=== PATIENT | female | born 1995 ===

== ENCOUNTER 2025-07-23 07:55 | Outpatient (REF) | payer OTHER, MEDICARE, MEDICAID, SELFPAY ==
--- OUTSIDE RECORDS SUMMARY | 2024-09-20 11:27 | XMS_ITS | Encounter Summary ---
Author Organization [facility] [place] [address] Care Team Providers Care Line Maintenance Supervisor Name Role Phone Tyra Patel MD Primary Care Provider [phone] Encounter Details Date Type Department Care Team (Late st Contact Info) Description 09/20/2024 11:27 AM EDT Hospital Encounter TH HISTORIC ENCOUNTERS EASTERN CONVERSION ONLY Maria G Marcano MD [address] [place] [phone] Social History Tobacco Use Types Packs/Day Years Used Date Smoking Tobacco: Never Passive Smoke Exposure: Never Smokeless Tobacco: Never Alcohol Use Standard Drinks/Week Comments Not Currently 0 (1 standard drink = 0.6 oz pur e alcohol) Socially Housing Instability Answer Date Recorde d Are you worried that in the next 2 months you may not have stable housing? No 02/28/2025 Food Access & Nutrition Answer Date Rec orded Do you have access to a vari ety of food including fruits and vegetables? No 02/28/2025 Access to Healthcare Answer Date Record ed Within the last 3 months, ho w many times did you visit the emergency department for your medical care? 0 02/28/2025 Health Literacy Answer Date Recorded How often do you need to hav e someone help you when you read instructions, pamphlets, or other written material from your doctor or pharmacy? Never 02/28/2025 Caregiver: How often do you need to have someone help you when you read instructions, pamphlets, or other written material from your doctor or pharmacy? Not on file 02/28/2025 Financial Risk Answer Date Recorded How hard is it for you to pa y for the very basics like food, housing, medical care, and air conditioning / heating? Not very hard 02/28/2025 Transportation Answer Date Recorded Has the lack of transportati on kept you from meetings, work, or from getting things needed for daily living? Not on file 02/28/2025 Has the lack of transportati on kept you from medical appointments or from getting medications? No 02/28/2025 Social Isolation Answer Date Recorded How often do you feel lonely or isolated from th ose around you? Never 02/28/2025 Food Risk Answer Date Recorded Within the past 12 months we worried whether our food would run out before we got money to buy more. Never true 02/28/2025 Within the past 12 months th e food we bought just didn't last and we didn't have money to get more. Never true 02/28/2025 Dependent Care Answer Date Recorded Do you need help finding or paying for care for your loved ones. For example, childrens club attendant or elderly care for an older adult? No 02/28/2025 Education Answer Date Recorded Do you think completing more education or training, like finishing a GED, going to college, or learning a trade, would be helpful for you? No 02/28/2025 Employment and Income Answer Date Recor ded During the last four weeks, have you been actively looking for work? No 02/28/2025 Living Situation Answer Date Recorded What is your living situation? 0 02/28/2025 Comments No Sex and Gender Information Value Date Recorded Sex Assigned at Female 02/17/2025 9:53 AM EDT Legal Sex Female 9:01 AM EST Gender Identity Female 02/17/2025 9:53 AM EDT Sexual Orientation Straight 02/17/2025 9: 53 AM EDT documented as of this encounter Last Filed Vital Signs Vital Sign Reading Time Taken Comments Blood Pressure 107/75 09/20/2024 11:37 AM EDT Sitting Left arm Pulse 91 09/20/2024 11:37 AM EDT Temperature - - Respiratory Rate - - Oxygen Saturation - - Inhaled Oxygen Concentration - - Weight 74.4 kg (164 lb) 07/26/2024 11:2 3 AM EDT Height 157.5 cm (5' 2 ) 07/26/2024 11:2 3 AM EDT Body Mass Index 30 07/26/2024 11:23 AM EDT documented in this encounter Progress Notes * Maria G Marcano MD - 09/20/2024 11:30 AM EDT . Epilepsy / Neurology clinic Visit Note Chief Complaint and Reason for Consult New visit Referred by:PCP Reason for referral:seizure vs pseudoseizure History of Present Illness Interval history Patient is here for follow up No new neurological symptom concerning for seizure since last visit Patient still on Topamax 100 mg twice a day and Trileptal 300 mg twice a day for her mood discussedwith the patient that to be continued until we finish the workup Since last visit she was diagnosed with upper respiratory tract infection complicated by ear pain concerning for otitis media currently on antibiotics Patient have not heard or scheduled for her EEG yet Reviewed records from [facility] she had a CT scan done but no MRI brain which was nonconcerning so patient please obtain MRI HPI Kelly Brizuela is a 29 y.o. adult here in Epilepsy clinic for evaluation and management of seizures. Past medical history of with past medical history of IBS , Colitis , CPTSD , Anxiety per notes schizophrenia she follow with psychiatry She was born breech she stayed NICU over week , she had normal childhood , normal milestones went to special school at the regular school was excessive for her graduated with honors , her mom has seizure she is on treatment Few years ago she had some episodes reported shaking, staring in space , no UI/Yoli tongue bite, would last 20 seconds -2 minutes , she didn't have any episodes for years until Last March she had menses with some pain , she had some edibles from her mom to try help her pain, she was freaking out from [facility] concern for hallucinations She was at [facility] , She was then had other episode spacing out , shaking , no TB , no UI/BI , she had bruise on chest from EMS She had midazolam , there was concern of nonepileptic seizure, She had EEG overnight almost 24 hrs with reported events clinically without any epileptogenic changes on EEG She presented again to the ER multiple times with increased frequency of seizures Patient did have a drug screening test that came back negative for any drugs except for cannabinoids She denies any seizures since discharge Patient is currently on Topamax 100 mg twice a day and Trileptal 300 mg twice a day for her mood Seizure history: Seizure Onset: Seizure semiology/ spell types: Type: 1 Warning signs: Description of spell: Alteration of awareness: The duration was: The frequency was: Post ictal confusion: Other associated signs Tongue bite - Physical injuries - Urinary incontinence - Spells occur in clusters of two or more on the same day - Seizures/spells tend to occur at certain times - Upon awakening - Related to your menstrual cycle - Only during sleep - Triggers for seizures/spells - Epilepsy Risk Factors: Family History of seizures - no events - no Meningitis/encephalitis - no Febrile seizures - no Development - normal Head Trauma with LOC - no Other structural brain lesion - no Dementia - no Status epilepticus - No Vagus Nerve Stimulator implant - no Brain surgery for epilepsy - Non-epileptic Risk Factors: Current AEDs: Past Seizure Medications: Past Epilepsy work-up: EEG - Negative Ambulatory EEG - MRI brain 3T - Video EEG - PET brain - Neuropsych - Past Medical History: Past Medical History: Diagnosis Date ??? Seizures (HCC) Past Surgical History: Past Surgical History: Procedure Laterality Date ??? APPENDECTOMY Current Outpatient Medications: ??? atenolol (TENORMIN) tablet 25 mg, Take 1 tablet (25 mg total) by mouth daily., Disp: , Rfl: ??? dicyclomine (BENTYL) 20 MG tablet, Take 1 tablet (20 mg total) by mouth 2 (two) times a day., Disp: , Rfl: ??? DULoxetine (CYMBALTA) DR capsule 60 mg, Take 1 capsule (60 mg total) by mouth daily., Disp: , Rfl: ??? guanFACINE (TENEX) 2 MG tablet, Take 1 tablet (2 mg total) by mouth every night at bedtime., Disp: , Rfl: ??? linaclotide (Linzess) 145 MCG CAPS, Take 1 capsule (145 mcg total) by mouth every morning before breakfast., Disp: , Rfl: ??? loperamide (IMODIUM) 2 MG capsule, TAKE 1 CAPSULE BY MOUTH 3 TIMES DAILY NEEDED FOR DIARRHEAFOR UP TO 180 DAYS., Disp: , Rfl: ??? OXcarbazepine (TRILEPTAL) 150 MG tablet, Take 2 tablets (300 mg total) by mouth 2 (two) times aday., Disp: , Rfl: ??? QUEtiapine (SEROquel) 50 MG tablet, TAKE 1 TABLET BY MOUTH THREE TIMES A DAY NEEDED FOR ANXIETY, Disp: , Rfl: ??? topiramate (TOPAMAX) 100 MG tablet, , Disp: , Rfl: Family and Social History: Family History: Neurological FHx: Medical FHx: Social History: Home Situation: live with father Smoking: Alcohol: Drugs: Activities of daily living: Education: Driving:No Review of symptoms CONSTITUTIONAL: No fevers, chills, night sweats, no weight loss, no appetite changes EYES: No injection, dryness, tearing, blurring EARS, NOSE, THROAT: No tinnitus, rhinorrhea or discharge, no throat soreness or dryness, no oral ulcers. LYMPH NODES: None noticed CV: no chest pain, dyspnea, edema RESP: No shortness of breath, dyspnea on exertion, cough, wheezing, or hemoptysis GI: No nausea, emesis, diarrhea, constipation, melena, pain. : No dysuria, hematuria, urgency, or frequency PSYCHIATRIC: No depression, anxiety, psychosis, hallucinations SKIN: no rashes RHEUM: no significant joint pains. Muscular: No back pain joint pain Neurology: see history of present illness, seizures. EXAM Vitals: 09/20/24 1137 BP: 107/75 Pulse: 91 Temp: 97.1 ??F (36.2 ??C) TempSrc: Temporal SpO2: 97% General Exam: Well appearing adult in no acute distress. HEENT: normocephalic, atraumatic. mucous membranes are moist. CARDIOVASCULAR heart rate regular RESPIRATORY: Respirations nonlabored ABD: soft nontender EXTREMITIES AND SKIN: no clubbing, cyanosis, edema, or ecchymosis NEUROLOGIC: MENTAL STATUS: Normal orientation and language. Memory normal. Speech not dysarthric. CRANIAL NERVES: II: Pupils equal round and reactive to light bilaterally, visual heller full to confrontation III,IV,: Extraocular movements intact. Saccades and smooth pursuit normal. V: Facial sensation and associated motor normal. VII: Facial motor function normal. VIII: Hearing equal to finger rub bilaterally IX/X: Palate symmetric XI: Shoulder shrug equal, head turn equal XII: Tongue midline MOTOR: Tone: normal Bulk: normal Rapid alternating movements: normal bilaterally Strength: 5/5 all muscle groups DTRs: normal and symmetrical SENSATION: light touch: normal Temperature: normal REFLEXES: Toes down, no clonus. COORDINATION: bpafll-yslp-xfjrlj intact; vpb-qdqpag-rmr intact. No postural tremor. GAIT: Labs and imaging studies: Labs: No results found for: WBC , RBC , HCT , HGB , MCV , MCH , MCHC , RDW , PLTCOUNT , MPV , NEUTROPHILS , LYMPHOCYTES , MONOCYTES , EOSINOPHILS , BASOPHILS , NEUTROPHABSO , LYMPHOCYABSO , MONOCYTABSOL , EOSINOPHIABS , BASOPHILSABS No results found for: BUN , CREATININE , NA , K , CL , CO2 , GLUCFASTING , CALCIUM , ALBUMIN , ALKPHOS , AST , ALT , LABBILI No results found for: CHOL , HDL , LDLCHOL , LDLCALC , VLDL , TRIGLYCERIDE , TRIG , CHOLHDLCRAT , CORRISKRATIO No results found for: HGBA1C Images: CT head reported normal Assessment/Plan: Kelly Brizuela is a 29 y.o. adult past medical history of IBS , Colitis , CPTSD , Anxiety per notes schizophrenia she follow with psychiatry , she has been having on and off for years episodes described the patient as concerning for seizure activity per notes EEG did not show any coinciding epileptic activity on admission Patient is currently on Topamax 100 mg twice a day and Trileptal 300 mg twice a day unclear who started the patient on the treatment discussed with the patient need to obtain the prior data and her EEG results notes from prior providers before any medication changes prolongeddiscussion with the patient and the father the difference between epileptic and nonepileptic seizure explained clearly what we will end up have Last visit we discussed the possibility of referral to an epilepsy specialist in case all workup was negative Plan: 1. Will obtain another 72 hours EEG(ordered last visit and was not done) thank you 2. Need to obtain all workup done at hospital admission at [facility] including the video EEG including imaging and EEG results 3. Patient is currently on Topamax 100 mg twice a day and Trileptal 300 mg twice a day for her moodto be continued until workup with 4. Will obtain MRI brain with and without contrast 5. Obtain basic labs and Topamax Trileptal level Orders Placed This Encounter Procedures ??? CBC W/Auto Differential ??? Liver Profile ??? B12/Folate ??? 25-Hydroxy Vitamin D ??? Creatinine ??? Blood Urea Nitrogen (BUN) ??? Topiramate Level ??? Oxcarbazepine Metabolite (MHC) I spent more than 30 minutes for the chart review, interval history, examination of the patient, review of neurodiagnostic images, review of laboratory data, formulation of treatment plan and discussion with the patient. Time was also spent for post visit documentation. Performed during this encounter - chart review, interval history, examination of the patient, review of neurodiagnostic images, review of laboratory data, formulation of treatment plan and discussionwith the patient/patient's family. Portion of this time was spent for counseling on: -[place] state driving laws explained to pt - no driving for minimum of 6 months since last seizure with impaired awareness. - Seizures precautions explained - not bathing in tub, no swimming alone, no climbing heights, no exposure to open fire/water, not operating heavy/dangerous machinery or equipment, high impact sports - Counseled on SUDEP - Side effects of seizure medications assessed and discussed - Triggers for seizures, sleep hygiene discussed Maria G Marcano MD documented in this encounter Plan of Treatment Upcoming Encounters Date Type Department Care Team (Late st Contact Info) Description 09/12/2025 9:45 AM EDT Office Visit Endocrinology - [address] [phone] Manda Phoenix PA [address] [place] [address] 09/12/2025 4:00 PM EDT Office Visit [facility] [place] [address] [place] [id number] Kendra Shoemaker PA [address] [place] [address] documented as of this encounter Visit Diagnoses Not on filedocumented in this encounter Care Teams Line Maintenance Supervisor Relationship Specialty Start Date End Date Tyra Patel MD [address] [place] [address] PCP - General 10/24/22 documented as of this encounter
--- OUTSIDE RECORDS SUMMARY | 2025-07-23 08:00 | XMS_ITS | Clinical Summary ---
Author Organization [employer] [facility] Address [address] [address] Phone Care Team Providers Care Sharepoint Architect Name Role Phone Tyra Patel MD Primary Care Provider [phone] Vanessa Mora MD Unavailable [phone] Allergies No known active allergies Medications atenolol (TENORMIN) 25 MG tablet Take 1 tablet by mouth every morning. 06/14/2024 Active OXcarbazepine (TRILEPTAL) 150 MG tablet Take 2 tablets by mouth 2 (two) times a day. 07/19/2024 Active loperamide (IMODIUM) 2 mg capsule TAKE 1 CAPSULE BY MOUTH 3 TIMES DAILY NEEDED FOR DIARRHEA FOR UP TO 180 DAYS. 07/23/2024 Active guanFACINE (TENEX) 2 MG tablet take 1 tablet by mouth everyday at bedtime 08/22/2024 Active DULoxetine (CYMBALTA) 60 MG capsule Take 1 capsule by mouth every morning. 07/19/2024 Active dicyclomine (BENTYL) 20 mg tablet Take 1 tablet by mouth 2 (two) times a day. 07/11/2024 Active QUEtiapine (SEROQUEL) 50 MG tablet Take 50 mg by mouth 3 (three) times a day as needed. 07/19/2024 Active topiramate (TOPAMAX) 100 MG tablet 07/31/2024 Active linaCLOtide (LINZESS) 145 mcg Cap Take 145 mcg by mouth. Active albuterol (PROAIR HFA) 90 mcg/actuation inhaler Inhale 2 puffs into the lungs every 4 (four) hours as needed for wheezing. 18 g 09/12/2024 Active benzonatate (TESSALON) 100 MG capsule Take 2 capsules (200 mg total) by mouth 3 (three) times a day as needed for cough. 21 capsule 09/12/2024 Active inhaler spacing device (AEROCHAMBER,BR EATHERITE) Spcr Inhale 1 each into the lungs every 4 (four) hours as needed. 1 each 09/12/2024 Active Active Problems No known active problems Social History Tobacco Use Types Packs/Day Years Used Date Smoking Tobacco: Never Smokeless Tobacco: Never Education Answer Date Recorded Are you interested in more education? Not on candy e 09/06/2024 Are you concerned about learning? Not on file 09/06/2024 No 09/06/2024 No 09/06/2024 Digital Access Answer Date Recorded No 09/06/2024 No 09/06/2024 Reliable internet access at home? Not on file 09/06/2024 Device with a working camera? Not on file Comments Unknown Sex and Gender Information Value Date Recorded Sex Assigned at Not on file Legal Sex Female 11:18 AM EDT Gender Identity Not on file Sexual Orientation Not on file Last Filed Vital Signs Vital Sign Reading Time Taken Comments Blood Pressure 111/77 09/12/2024 4:10 PM EDT Pulse 68 09/12/2024 4:10 PM EDT Temperature 37.6 C (99.6 F) 09/12/2024 4:10 PM EDT Respiratory Rate 16 09/12/2024 4:10 PM EDT Oxygen Saturation 94% 09/12/2024 4:10 PM EDT Inhaled Oxygen Concentration - - Weight - - Height - - Body Mass Index - - Plan of Treatment Health Maintenance Due Date Last Done Comments DEPRESSION SCREENING 2008 HEPATITIS C SCREENING 02/22/2014 HIV ONE-TIME SCREENING (18-65 YEARS) 02/22/2014 PAP SMEAR 05/21/2024 05/21/2021 INFLUENZA VACCINE (#1) 2025 , 09/05/2018, 09/25/2016, Additional history exists COVID-19 VACCINE (2024- season) 2025 03/27/2021 Adult Td,Tdap Booster 05/03/2027 05/03/2017, 007 HIB VACCINES Completed 05/26/1997, 02/1996, 1996, Additional history exists MENINGOCOCCAL VACCINES (ACWY) Completed 04/27/2012 SMOKING STATUS SCREENING (Once After 26 Yrs) Completed 09/12/2024 HEPATITIS A VACCINES Aged Out No long er eligible based on patient's age to complete this topic MENINGOCOCCAL VACCINES (B) Aged Out N o longer eligible based on patient's age to complete this topic PNEUMOCOCCAL VACCINES (0-49 years) Aged Out No longer eligible based on patient's age to complete this topic Medical Devices Not on file Insurance [facility] PPO [facility] PPO MEDICARE REPLACEMENT [facility] PPO [facility] PPO [facility]IC[facility] [employer] PPO MEDICARE REPLACEMENT [facility] CIGNA PPO [employer]LL[employer]ARE PPO MEDICARE REPLACEMENT [facility] PPO [facility] PPO MEDICARE RE[facility]AC[facility]PO [facility] PPO MEDICARE REPLACEMENT MEDICARE PART A & B MEDICARE PART A & B MEDICARE PART A & B MEDICARE PART A & B MEDICARE PART A & B MEDICARE PART A & B MEDICARE PART A & B MEDICARE PART A & B MEDICARE PART A & [place] [address] [place] [address] DENTAL Care Teams Sharepoint Architect Relationship Specialty Start Date End Date Tyra Patel MD [address] [place] [phone] PCP - General Internal Medicine 09/06/24 [facility] [address] [address] Internal Medicine 09/06/24 Additional Source Comments The information contained in this document represents components of the legal health record. It is not the complete legal health record.[facility]
--- OUTSIDE RECORDS SUMMARY | 2025-07-23 08:00 | XMS_ITS | Encounter Summary ---
Author Organization [facility] Address [address] [place] [address] Care Team Providers Care Health Occupations Teacher Name Role Phone Tyra Patel MD Primary Care Provider Encounter Details Date Type Department Care Team (Late st Contact Info) Description 02/08/2025 Nurse Triage Adult Medicine [facility] [address] [place], [place] [phone] Kavitha Sharpe NP [address] [place], [place] Social History Tobacco Use Types Packs/Day Years Used Date Smoking Tobacco: Never Smokeless Tobacco: Never Comments No Sex and Gender Information Value Date Recorded Sex Assigned at Female 02/17/2025 9:53 AM EDT Legal Sex Female 9:01 AM EST Gender Identity Female 02/17/2025 9:53 AM EDT Sexual Orientation Straight 02/17/2025 9: 53 AM EDT documented as of this encounter Progress Notes * PIPER Coffman - 02/24/2025 4:02 PM EDT Review. Last labs consistent with subclinical hyperthyroidism. Will discuss on treatment options that are coming visit * Lexie Rubio RN - 02/21/2025 1:54 PM EDT myChart message from the patient: Kunz, I wanted to let you know that I was taking Methimazole (11/21) like you wanted, but I once again started to get hallucinations, so I had to stop again. I apologize. Have a good day! Please advise * Lexie Rubio RN - 02/11/2025 9:06 AM EDT Called and spoke with patient Message from provider read Pt verbalizes understanding Appt made 03/14 at 7:30am * PIPER Coffman - 02/10/2025 4:36 PM EDT Please advise patient to check her thyroid labs, restart methimazole, do half a tab a day and see how she feels, if she starts having hallucinations, then reach out to us, also schedule a follow up to discuss other tx options. * Lexie Rubio RN - 02/10/2025 2:46 PM EDT Images from the original note were not included. Kelly Sherwood [facility] Adult Medicine [facility] (supporting Kavitha Sharpe NP) AV 02/08/25 7:05 PM I have been extremely fatigued lately, and my hair has started to fall out. Checking my graph I am over the normal rate. Do you know when I will be trying a new medication? I have been becoming tirednormally around 4 or 5, even earlier. I am also forgetful. I seem to be showing all the signs of hyperthyroidism, whichever is the correct one. I always forget which one I have. But I also am always cold. I would love to work on the next step of fixing this. Thank you. Pt has been off of Methimazole x 2 months Per pt psychiatrist told her to stay off of Methimazole Since stopping methimazole she has not had any hallucinations Pt is willing to restart methimazole and see if she any side effects Last thyroid labs 01/15/25 Please advise documented in this encounter Plan of Treatment Upcoming Encounters Date Type Department Care Team (Late st Contact Info) Description 09/12/2025 9:45 AM EDT Office Visit Endocrinology - [place] [address] [place] [phone] Manda Phoenix PA [address] [place] [address] 09/12/2025 4:00 PM EDT Office Visit [facility] [address] [place] [phone] Kendra Shoemaker PA [address] [place] [address] documented as of this encounter Results * (ABNORMAL) Thyroid stimulating hormone with reflex to free t4 and free t3 (02/14/2025 11:44 AM EDT) TSH <0.05(L) 0.40 - 4.00 mcIU/mL LAB CHEMISTRY METHOD 02/14/2025 3:03 PM EDT [facility] Blood Venous blood specimen / Unknown Venipuncture / Unknown 02/14/2025 11:44 AM EDT 02/14/2025 11:44 AM EDT us Manda SALDAÑA LAB BLOOD ORDERABLES Final Result [facility] [address] [place] [address], documented in this encounter Visit Diagnoses Diagnosis Hyperthyroidism- Primary Thyrotoxicosis without mention of goiter or other cause, without mention of thyrotoxic crisis or storm Subclinical hyperthyroidism Thyrotoxicosis without mention of goiter or other cause, without mention of thyrotoxic crisis or storm documented in this encounter Care Teams Health Occupations Teacher Relationship Specialty Start Date End Date Tyra Patel MD [address] [place] [address] PCP - General 10/24/22 documented as of this encounter
--- OUTSIDE RECORDS SUMMARY | 2025-07-23 08:00 | XMS_ITS | Encounter Summary ---
Author Organization [facility] Address [address] [place] [address] Care Team Providers Care Territory Manager General Sales Name Role Phone Tyra Patel MD Primary Care Provider [phone] Encounter Details Date Type Department Care Team (Late st Contact Info) Description 03/23/2025 Nurse Triage Adult Medicine [address] [phone] Tyra Patel MD [address] [place] [address] Social History Tobacco Use Types Packs/Day Years Used Date Smoking Tobacco: Never Passive Smoke Exposure: Never Smokeless Tobacco: Never Alcohol Use Standard Drinks/Week Comments Yes 0 (1 standard drink = 0.6 oz [...] care for your loved ones. For example, child specialist or elderly care for an older adult? [...] as of this encounter Progress Notes * Dania Mo RN - 03/24/2025 1:13 PM EDT Mail box is full unable to LM documented in this encounter Plan of Treatment Upcoming Encounters Date Type Department Care Team (Late st Contact Info) Description 09/12/2025 9:45 AM EDT Office Visit Endocrinology - [place] [address], [place] [phone] Manda Phoenix PA [address] [place] [address] 09/12/2025 4:00 PM EDT Office Visit [facility] [address] [place] [address] Kendra Shoemaker PA [address] [place] [address] documented as of this encounter Visit Diagnoses Not on filedocumented in this encounter Additional Health Concerns Assessment Noted Time PHQ-9 Depression Total Score: 0 02/29/20 25 4:06 PM EDT documented as of this encounter Care Teams Territory Manager General Sales Relationship Specialty Start Date End Date Tyra Patel MD [address] [place], [place] PCP - General 10/24/22 documented as of this encounter
--- OUTSIDE RECORDS SUMMARY | 2025-07-23 08:00 | XMS_ITS | Clinical Summary ---
Author Organization [facility] [address] [place] [address] [address] [place] [address] Phone Care Team Providers Care Child And Family Counselor Name Role Phone Tyra Patel MD Primary Care Provider [phone] Allergies No known active allergies Medications DULoxetine (CYMBALTA) [address] capsule TAKE 1 CAPSULE BY MOUTH EVERY DAY 9 Active guanFACINE (TENEX) 2 mg tablet TAKE 1 TABLET BY MOUTH EVERY NIGHT AT BEDTIME 2 Active linaCLOtide (Linzess) 72 mcg capsule Take 72 mcg by mouth daily. 4 Active melatonin 5 mg tablet Take by mouth. 3 tabs at night. Active OXcarbazepine (TRILEPTAL) 150 mg tablet TAKE 2 TABLETS BY MOUTH TWICE A DAY 0 Active QUEtiapine (SEROquel) 50 mg tablet TAKE 1 TABLET BY MOUTH EVERYDAY AT BEDTIME 0 Active topiramate (TOPAMAX) 100 mg tablet TAKE 1 TABLET BY MOUTH EVERY DAY 9 Active ergocalciferol (VITAMIN D-2) 1,250 mcg (50,000 unit) capsule Take 1 capsule (50,000 Units total) by mouth 1 (one) time per week. 4 each 11 4 025 Active atenoloL (TENORMIN) 25 mg tablet Take 1 tablet (25 mg total) by mouth 1 (one) time each day. 90 tablet 1 5 Active albuterol HFA (PROAIR HFA ; PROVENTIL HFA ; VENTOLIN HFA) 90 mcg/actuation inhaler Inhale 2 puffs by mouth every 4 (four) hours if needed for wheezing. 8.5 g 3 5 Active dicyclomine (BENTYL) 20 mg tabletIndications:Cr ohn's disease with complication, unspecified gastrointestinal tract location ([facility] V24, [facility] V28) TAKE 1 TABLET BY MOUTH TWICE A DAY 180 tablet 1 5 Active Active Problems Problem Noted Date Diagnosed Date Subclinical hyperthyroidism 12/10/2024 Kidney stone 09/17/2024 Bipolar affective disorder ([facility] V24, [facility] V28) 06/20/2019 Crohn's disease ([facility] V24, [facility] V28) 03/03 Overview (09/17/2024): Small bowel and colon Multiple personality disorder ([facility] V24, [facility] V28) 03/03/2014 Oppositional defiant disorder 03/03/2014 PTSD (post-traumatic stress disorder) 03/03/2014 Sleep disorder 03/03/2014 Pneumothorax 1996 Overview (09/17/2024): at Encounters Date Type Department Care Team Description 06/26/2025 1:30 PM EDT Office Visit Adult Medicine [address] [phone] Tyra Patel MD Family history of alpha 1 antitrypsin deficiency (Primary Dx) 05/09/2025 Telephone Adult Medicine [address] [phone] Tyra Patel MD 05/08/2025 1:00 PM EDT Office Visit Walk-In [facility] - [address] [phone] Latrell Jama PA Symptoms involving urinary system (Primary Dx) 05/08/2025 Nurse Triage Adult Medicine [address] [phone] Tyra Patel MD from Last 3 Months Immunizations Name Administration Dates Next Due DTP 1996,1996,1996 DTaP (Infanrix) 6wks to less than 7yo 03/20/2001 ,05/26/1997 [id number] (Pentacel) 2mo to less than 5yo 05/26/1997,1996,1996,04/29 HPV, Quadrivalent 10/01/2008,01/11/2008,09/17/20 07 Hepatitis B (Gvvmipz-N-Hjvxz , Recombivax HB-Adult) 19yo and older 02/15/2018,10/16/2017,09/14/2017 Hepatitis B Pediatric (Enger ix B; Recombivax HB) to less than 20 yo 02/04/2008,1996,1996 IPV Inactivated polio (Ipol) 6wks and older 03/20/2001,1996,1996,04/29 Influenza Quadravalent, MDCK , 0.5ml, preservative free (Flucelvax) 6mo and older 12/19/2022 Influenza Quadravalent, MDCK , 0.5ml, with preservative (Flucelvax) 6mo and older 09/05/2018 Influenza trivalent, 0.5mL, preservative free (Fluarix; FluLaval; Fluzone) ages 6mo and older (Afluria) 3 years and older 09/25/2016,10/20/2014 Influenza trivalent, MDCK, 0 .5mL, preservative free (Flucelvax) 6mo and older 10/02/2024 MMR, measles mumps and rubel la Live (Priorix; M-M-R II) 12mo and older 04/10/2000,02/24/1997 Meningococcal MCV4P 04/27/2012 Td Tetanus diptheria (Tdvax) 7yo and older 05/03/2017 Tdap Tetanus diptheria acell ular pertussis (Boostrix; Adacel) 7yo and older 08/15/2007 Varicella live (Varivax) 12m o and older 02/04/2008,04/10/2000 Surgical History Surgery Date Site/Laterality Comments APPENDECTOMY PROCEDURE:APPENDECTOMY Medical History Medical History Date Comments Seizures (CMS/HCC V24, CMS/HCC V28) DX:Seizures (HCC) Abnormal Pap smear of cervix Depression Disease of thyroid gland Migraine Urinary tract infection Hypothyroidism Family History Medical History Relation Name Comments defects Father Alvin Brizuela Lung cancer Father's Brother Breast cancer Father's Sister Shanti Brizuela Alcohol abuse Maternal Grandfather Isrrael Collazo Dementia Mother Louisa Brizuela Immunodeficiency Mother Louisa Brizuela Kidney disease Mother Louisa Brizuela Leukemia Mother Louisa Brizuela Stroke Mother Louisa Brizuela Breast cancer Mother's Sister 1 Alcohol abuse Mother's Sister 2 Tiffany Guyette Breast cancer Mother's Sister 2 Tiffany Guyette Rectal cancer Paternal Grandmother Relation Name Status Comments Father Alvin Brizuela Father's Brother Father's Sister Shanti Brizuela Maternal Grandfather Isrrael Reneee Mother Louisa Brizuela Mother's Sister 1 Mother's Sister 2 Tiffany Guyette Other Alive Paternal Grandmother Social History Tobacco Use Types Packs/Day Years Used Date Smoking Tobacco: Never Passive Smoke Exposure: Never Smokeless Tobacco: Never Tobacco Cessation:Counseling Given: Not Answered Alcohol Use Standard Drinks/Week Comments Not Currently [...] care for your loved ones. For example, housekeeper child care or elderly care for an older adult? [...] Orientation Straight 02/17/2025 9: 53 AM EDT Obstetrics History Para Term AB IAB SAB Ectopic Multiple Livin g Live Births 0 0 0 0 0 0 0 0 Last Filed Vital Signs Vital Sign Reading Time Taken Comments Blood Pressure 112/72 06/26/2025 1:42 PM EDT Pulse 74 06/26/2025 1:42 PM EDT Temperature 36.4 C (97.5 F) 06/26/2025 1:42 PM EDT Respiratory Rate 14 06/26/2025 1:42 PM EDT Oxygen Saturation 98% 06/26/2025 1:42 PM EDT Inhaled Oxygen Concentration - - Weight 69.9 kg (154 lb) 06/26/2025 1:42 PM EDT Height 157.5 cm (5' 2 ) 06/26/2025 1:42 PM EDT Body Mass Index 28.17 06/26/2025 1:42 PM EDT Plan of Treatment Upcoming Encounters Date Type Department Care Team (Late st Contact Info) Description 09/12/2025 9:45 AM EDT Office Visit Endocrinology - [place] [address] [place] [address] Manda Phoenix PA [address] [place] [address] 09/12/2025 4:00 PM EDT Office Visit [facility] [address] [facility] [address] [place] [phone] Kendra Shoemaker PA [address] [place] [address] Health Maintenance Due Date Last Done Comments Medicare Annual Wellness Visit 10/23/2022 COVID-19 Vaccine ( season) 2025 03/27/2021 Influenza Vaccine (#1) 2025 , 12/19/2022, 09/05/2018, Additional history exists Social Influencers of Health Screening 02/28/2026 02/28/2025 Colorectal Cancer Screening: Colonoscopy 09/16/2026 09/16/2021 Cervical Cancer Screening: Pap Smear 04/04/2028 04/04/2025, 05/21/2021, 05/21/2021, Additional history exists Cholesterol Screening (Lipid Panel) 02/28/2030 02/28/2025, 04/08/2024, 04/08/2024 DTaP,Tdap,and Td Vaccines (9 - Td or Tdap) 06/21/2030 06/21/2020, 05/03/2017, 08/15/2007, Additional history exists HIB Vaccines Completed 05/26/1997, 1002/1996, 1996, Additional history exists MMR Vaccines Completed 04/10/2000, 02/24/1997 IPV Vaccines Completed 03/20/2001, 05/1997, 1996, Additional history exists Varicella Vaccines Completed 02/04/2008, 04/10/2000 HPV Vaccines Completed 10/01/2008, 12/22, 09/17/2007 Meningococcal ACWY Vaccine Completed 04/27/2012 Hepatitis B Vaccines Completed 02/15/2018, 10/16/2017, 09/14/2017, Additional history exists Depression Screening Completed 03/30/2025 HIV Screening Completed 04/04/2025, 05/03/2017 Hepatitis C Screening Completed 04/04/2025, 017 Hepatitis A Vaccines Aged Out No long er eligible based on patient's age to complete this topic Meningococcal B Vaccine Aged Out No l onger eligible based on patient's age to complete this topic Pneumococcal Vaccine: Pediatrics (0 to 5 Years) and At-Risk Patients (6 to 49 Years) Aged Out No longer eligible based on patient's age to complete this topic RSV Immunization Patients Under 20 months Aged Out No longer eligible based on patient's age to complete this topic Procedures Procedure Name Priority Date/Time Associated Diagnosis Comments CBC WITH AUTO DIFFERENTIAL Routine 06/26/2025 2:24 PM EDT Family history of alpha 1 antitrypsin deficiency THYROID STIMULATING HORMONE WITH REFLEX TO FREE T4 AND FREE T3 Routine 06/26/2025 2:24 PM EDT Subclinical hyperthyroidism [id number] PHENOTYPE Routine 06/26/2025 2:24 PM EDT Family history of alpha 1 antitrypsin deficiency [id number] Routine 06/26/2025 2 :24 PM EDT Family history of alpha 1 antitrypsin deficiency COMPREHENSIVE METABOLIC PANEL Routine 06/26/2025 2:24 PM EDT Family history of alpha 1 antitrypsin deficiency CBC AND DIFFERENTIAL Routine 06/26/2025 2:24 PM EDT Family history of alpha 1 antitrypsin deficiency POC URINE NON-AUTO W/O MICRO Routine 05/08/2025 6:24 PM EDT Symptoms involving urinary system URINALYSIS MICROSCOPIC ONLY Routine 05/08/2025 1:27 PM EDT Symptoms involving urinary system URINALYSIS MICROSCOPIC ONLY Routine 05/08/2025 1:27 PM EDT Symptoms involving urinary system VAGINITIS PATHOGENS BY PCR Routine 05/08/2025 1:27 PM EDT Symptoms involving urinary system CULTURE URINE Routine 05/08/2025 1:27 PM EDT Symptoms involving urinary system THYROID STIMULATING HORMONE WITH REFLEX TO FREE T4 AND FREE T3 Routine 05/01/2025 4:19 PM EDT Subclinical hyperthyroidism PAP SMEAR Routine 04/04/2025 4:20 PM EDT Screening for cervical cancer HEPATITIS C ANTIBODY Routine 04/04/2025 2:21 PM EDT Encounter for screening for viral disease HIV 1, 2 ANTIBODY, P24 ANTIGEN WITH REFLEX TO DIFFERENTIATION Routine 04/04/2025 2:21 PM EDT Encounter for screening for viral disease LIPID PANEL WITH REFLEX TO DIRECT LDL Routine 02/28/2025 4:45 PM EDT PE (physical exam), annual HM COLONOSCOPY Routine 09/16/2021 from Last 3 Months or Most Recently Relevant to Health Maintenance Results * Thyroid stimulating hormone with reflex to free t4 and free t3 (06/26/2025 2:24 PM EDT) Only the most recent of2 resultswithin the time period is included. TSH 0.76 0.40 - 4.00 mcIU/mL LAB CHEMISTRY METHOD 06/26/2025 6:02 PM EDT [facility] Blood Venous blood specimen / Unknown Venipuncture / Unknown 06/26/2025 2:24 PM EDT 06/26/2025 2:24 PM EDT us Manda SALDAÑA LAB BLOOD ORDERABLES Final Result Performing Organization Address City/[facility]/ZIP Co de Phone Number [facility] [address] [place] [address], [place] [phone] * [id number] phenotype (06/26/2025 2:24 PM EDT) Alpha-1 Antitrypsin 114 90 - 200 mg/dL 07/09/2025 1:15 PM EDT [facility] Alpha-1 Antitrypsin Phenotype MM 07/09/2025 1:15 PM EDT [facility] Interpretation See Below 07/09/2025 1:15 PM EDT [facility] Comment: The patient appears to have a normal phenotype. All M alleles produce normal serum concentrations of alpha-1 antitrypsin and are not associated with clinical disease. Caution in interpretation is advised if the patient has been transfused within the previous 21 days. Test performed at [facility], [address] [place] [address] Yuridia Salazar MD, PhD - Fire Sprinkler Apparatus Inspector Blood Venous blood specimen / Unknown Venipuncture / Unknown 06/26/2025 2:24 PM EDT 06/26/2025 2:24 PM EDT us Tyra Patel MD LAB MOLECULAR DIAGNOSTICS ORDERA BLES Final Result Performing Organization Address City/[facility]/ZIP Co de Phone Number [facility] [address] [place] [address] * (ABNORMAL) CBC auto differential (06/26/2025 2:24 PM EDT) WBC 6.6 4.8 - 10.8 K/[facility] LAB HEMETOLOGY METHOD 06/26/2025 4:45 PM EDT [facility] RBC 4.30 3.80 - 4.80 M/mcL LAB HEMETOLOGY METHOD 06/26/2025 4:45 PM EDT [facility] Hemoglobin 13.7 11.5 - 16.0 g/dL LAB HEMETOLOGY METHOD 06/26/2025 4:45 PM EDT [facility] Hematocrit 40.1 35.0 - 47.0 % LAB HEMETOLOGY METHOD 06/26/2025 4:[facility] MCV 93.9 79.0 - 98.0 FL LAB HEMETOLOGY METHOD 06/26/2025 4:45 PM EDT [facility] MCH 32.1(H) 27.0 - 32.0 pcg LAB HEMETOLOGY METHOD 06/26/2025 4:45 PM EDT [facility] MCHC 34.2 32.0 - 37.0 g/dL LAB HEMETOLOGY METHOD 06/26/2025 4:45 PM [facility] RDW 12.2 11.0 - 15.0 % LAB HEMETOLOGY METHOD 06/26/2025 4:45 PM EDT [facility] Platelets 294 130 - 400 K/mcL LAB HEMETOLOGY METHOD 06/26/2025 4:45 PM EDT [facility] MPV 10.3 7.0 - 11.0 FL LAB HEMETOLOGY METHOD 06/26/2025 4:45 PM [facility] NRBC 0.0 <1.0 % LAB HEMETOLOGY METHOD 06/26/2025 4:45 PM EDT [facility] NRBC Absolute 0.00 <0.10 K/mcL LAB HEMETOLOGY METHOD 06/26/2025 4:[facility] Neutrophils Relative 70.2 % LAB HEMETOLOGY METHOD 06/26/2025 4:45 PM [facility] Lymphocytes Relative 22.3 % LAB HEMETOLOGY METHOD 06/26/2025 4:45 [facility] Monocytes Relative 4.7 % LAB HEMETOLOGY METHOD 06/26/2025 4:45 PM EDT [facility] Eosinophils Relative 2.0 % LAB HEMETOLOGY METHOD 06/26/2025 4:45 PM EDT [facility] Basophils Relative 0.6 % LAB HEMETOLOGY METHOD 06/26/2025 4:45 PM EDT [facility] Immature Granulocytes Relative 0.2 % LAB HEMETOLOGY METHOD 06/26/2025 4:45 PM EDT [facility] Neutrophils Absolute 4.66 1.50 - 7.00 K/mcL LAB HEMETOLOGY METHOD 06/26/2025 4:45 PM EDT [facility] Lymphocytes Absolute 1.48 1.00 - 5.00 K/mcL LAB HEMETOLOGY METHOD 06/26/2025 4:45 PM EDT [facility] Monocytes Absolute 0.31 0.20 - 1.00 K/mcL LAB HEMETOLOGY METHOD 06/26/2025 4:45 PM EDT [facility] Eosinophils Absolute 0.13 0.00 - 0.50 K/mcL LAB HEMETOLOGY METHOD 06/26/2025 4:45 PM EDT [facility] Basophils Absolute 0.04 0.00 - 0.20 K/mcL LAB HEMETOLOGY METHOD 06/26/2025 4:45 PM EDT [facility] Immature Granulocytes Absolute 0.01 0.00 - 0.03 K/mcL LAB HEMETOLOGY METHOD 06/26/2025 4:45 PM EDT [facility] Blood Venous blood specimen / Unknown Venipuncture / Unknown 06/26/2025 2:24 PM EDT 06/26/2025 2:24 PM EDT us Tyra Patel MD LAB BLOOD ORDERABLES Final Resul t [facility] [address] [place] [address], [place] [phone] * [id number] (06/26/2025 2:24 PM EDT) A-1 Antitrypsin 132 90 - 200 mg/dL LAB CHEMISTRY METHOD 06/26/2025 4:37 PM EDT [facility] Blood Venous blood specimen / Unknown Venipuncture / Unknown 06/26/2025 2:24 PM EDT 06/26/2025 2:24 PM EDT us Tyra Patel MD LAB BLOOD ORDERABLES Final Resul t [facility] [address] [place] [address], [place] [phone] * (ABNORMAL) Comprehensive metabolic panel (06/26/2025 2:24 PM EDT) Pathologist [facility] Sodium 140 133 - 145 mmol/L LAB CHEMISTRY METHOD 06/26/2025 4:37 PM EDT [facility] Potassium 4.2 3.5 - 5.5 mmol/L LAB CHEMISTRY METHOD 06/26/2025 4:37 PM EDT [facility] Chloride 114(H) 96 - 110 mmol/L LAB CHEMISTRY METHOD 06/26/2025 4:37 PM EDT [facility] CO2 23 21 - 32 mmol/L LAB CHEMISTRY METHOD 06/26/2025 4:37 PM EDT [facility] Anion Gap 3 3 - 11 LAB CHEMISTRY METHOD 06/26/2025 4:37 PM EDT [facility] Glucose 79 70 - 100 mg/dL LAB CHEMISTRY METHOD 06/26/2025 4:37 PM EDT [facility] BUN 8 5 - 25 mg/dL LAB CHEMISTRY METHOD 06/26/2025 4:37 PM EDT [facility] Creatinine 0.70 0.50 - 1.10 mg/dL LAB CHEMISTRY METHOD 06/26/2025 4:37 PM EDT [facility] eGFR 120 >=60 mL/min/1. 73m2 LAB CHEMISTRY METHOD 06/26/2025 4:37 PM T [facility] Comment:Calculation based on the Chronic Kidney Disease Epidemiology Collaboration (CKD-EPI) equation refit without adjustment for race. BUN/Creatinine Ratio 11.4 LAB CHEMISTRY METHOD 06/26/2025 4:37 PM EDT [facility] Calcium 8.8 8.5 - 10.5 mg/dL LAB CHEMISTRY METHOD 06/26/2025 4:37 PM [facility] AST (SGOT) 14 10 - 42 unit/L LAB CHEMISTRY METHOD 06/26/2025 4:37 PM [facility] ALT (SGPT) 11 10 - 60 unit/L LAB CHEMISTRY METHOD 06/26/2025 4:37 PM [facility] Alkaline Phosphatase 49 42 - 121 unit/L LAB CHEMISTRY METHOD 06/26/2025 4:37 PM T [facility] Total Protein 7.4 6.0 - 8.0 g/dL LAB CHEMISTRY METHOD 06/26/2025 4:37 PM [facility] Albumin 4.0 3.2 - 5.0 g/dL LAB CHEMISTRY METHOD 06/26/2025 4:37 PM [facility] Total Bilirubin 0.2 0.0 - 1.4 mg/dL LAB CHEMISTRY METHOD 06/26/2025 4:37 PM T [facility] Blood Venous blood specimen / Unknown Venipuncture / Unknown 06/26/2025 2:24 PM EDT 06/26/2025 2:24 PM EDT us Tyra Patel MD LAB BLOOD ORDERABLES Final Resul t [facility] [address] [place] [address], [place] [phone] * (ABNORMAL) POC Urine Non-Auto W/O Micro (05/08/2025 6:24 PM EDT) [facility] GLUCOSE POC Negative Negative, Trace mg/dL Leukocytes UA POC 2+(A) Negative mg/dL Nitrite UA POC Negative Urobilinogen UA POC 0.2 E.U./dL mg/dL Protein UA POC Positive Positive, Negative PH UA POC 5.0 ANTONIO/HM UA POC 50(A) Negative Specific [place] UA POC >=1.030 Ketones UA POC Negative Negative Bilirubin UA POC Negative Negative Urine Urine specimen obtained by clean catch procedure / Unknown 05/08/2025 6:24 PM EDT Latrell SALDAÑA POINT OF CARE TEST ENTER/E DIT ORDERABLES Final Result * (ABNORMAL) Urinalysis microscopic only (05/08/2025 1:27 PM EDT) [facility] RBC, Urine 22.8(H) 0 - 4 /HPF LAB URINALYSIS - AUTOMATED METHOD 05/08/2025 7:54 PM EDT [facility] WBC, Urine 18.0(H) 0 - 4 /HPF LAB URINALYSIS - AUTOMATED METHOD 05/08/2025 7:54 PM [facility] Squamous Epithelial, Urine >100(H) 0 - 60 /LPF LAB URINALYSIS - AUTOMATED METHOD 05/08/2025 7:54 PM [facility] Crystals, Urine Heavy Calcium Oxalate crystals. /LPF LAB URINALYSIS - AUTOMATED METHOD 05/08/2025 7:54 PM EDT [facility] Bacteria, Urine Few(A) Negative /HPF LAB URINALYSIS - AUTOMATED METHOD 05/08/2025 7:54 PM [facility] Hyaline Casts, Urine 6.8(H) 0 - 3 /LPF LAB URINALYSIS - AUTOMATED METHOD 05/08/2025 7:54 PM [facility] Urine Urine specimen obtained by clean catch procedure / Unknown Non-blood Collection / Unknown 05/08/2025 1:27 PM EDT 05/08/2025 1:27 PM EDT us Latrell SALDAÑA LAB URINE ORDERABLES Final Result Performing Organization Address [facility]/State/ZIP Co de Phone Number [facility] [address] [place] [address], [place] [phone] * (ABNORMAL) Vaginitis pathogens molecular study (05/08/2025 1:27 PM EDT) Trichomonas vaginalis Negative Negative 05/09/2025 1:37 PM EDT [facility] Gardnerella vaginalis Positive(A) Negative 05/09/2025 1:37 PM EDT [facility] [place]a Species Negative Negative 1:37 PM EDT [facility] Swab Vaginal structure / Unknown Non-blood Collection / Unknown 05/08/2025 1:27 PM EDT 05/08/2025 1:27 PM EDT us Latrell SALDAÑA LAB MICROBIOLOGY - GENERAL ORDERABLES Final Result Performing Organization Address City/[facility]/ZIP Co de Phone Number [facility] [address] [place] [address], [place] [phone] * Culture urine (05/08/2025 1:27 PM EDT) Culture, Urine >100,000 CFU/mL Mixed bacterial morphotypes present suggestive of possible contamination during collection. Suggest appropriate recollection if clinically indicated. 05/09/2025 12:44 PM EDT [facility] Urine Urine specimen obtained by clean catch procedure / Unknown Non-blood Collection / Unknown 05/08/2025 1:27 PM EDT 05/08/2025 1:27 PM EDT us Latrell SALDAÑA LAB MICROBIOLOGY - GENERAL ORDERABLES Final Result [facility] [address] [place] [address], * Pap smear (04/04/2025 4:20 PM EDT) Interpretation Negative for intraepithelial lesion or malignancy 04/10/2025 11:55 AM EDT [facility] General Categorization Negative 04/10/2025 11:55 AM EDT [facility] LMP 04/03/2025 04/10/2025 11:55 [facility] Additional Information Note: Adequacy deemed satisfactory after reprocessing with the acid wash procedure for blood. 04/10/2025 11:55 AM [facility] Specimen Adequacy Satisfactory for evaluation, endocervical/srivastava sformation zone component present 04/10/2025 11:55 AM [facility] Pap Methodology Liquid Based Pap Test 04/10/2025 11:55 AM EDT [facility] Disclaimer The Pap test is a screening test which carries an inherent false negative rate. These test results should be correlated with the patient's clinical findings and history. This Pap test was processed using an automated screening system. Technical cytopathology services provided by [facility], at [address] [place] [id number] (CLIA # [id number]/Avi Amor MD, Fire Sprinkler Apparatus Inspector.) 04/10/2025 11:55 AM [facility] Console Pap Interpretation Reported 04/10/2025 11:55 AM [facility] Brushing/Spatula Cervix uteri structure / Unknown 04/04/2025 4:20 PM EDT 04/04/2025 4:20 PM EDT [facility] CYTOLOGY ORDERABLES Fin al Result Performing Organization Address City/[facility]/ZIP Co de Phone Number [facility] [address] [place] [address], [place] [phone] * Hepatitis C antibody (04/04/2025 2:21 PM EDT) Hepatitis C Antibody Negative Negative LAB CHEMISTRY METHOD 04/04/2025 8:13 PM EDT [facility] Blood Venous blood specimen / Unknown Venipuncture / Unknown 04/04/2025 2:21 PM EDT 04/04/2025 2:21 PM EDT [facility] BLOOD ORDERABLES Final Result Performing Organization Address [facility] Co de Phone Number [facility] [address] [place] [address], [place] [phone] * HIV 1,2 antibody, p24 antigen with reflex to differentiation (04/04/2025 2:21 PM EDT) HIV Combo AB/AG Negative Negative LAB CHEMISTRY METHOD 04/04/2025 8:15 PM EDT [facility] Blood Venous blood specimen / Unknown Venipuncture / Unknown 04/04/2025 2:21 PM EDT 04/04/2025 2:21 PM EDT Narrative [facility] - 04/04/2025 8:15 PM EDT This assay is a 4th generation assay allowing for earlier detection of HIV infection by detecting the presence of the HIV-1 p24 antigen as well as the traditional antibodies to HIV type 1 (including group O) and type 2. Use of a 4th generation assay is the current CDC recommendation for HIV screening. [facility] BLOOD ORDERABLES Final Result Performing Organization Address City/[facility]/ZIP Co de Phone Number [facility] [address] [place] [address], [place] [phone] * Lipid panel with reflex to direct LDL (02/28/2025 4:45 PM EDT) Cholesterol 159 0 - 200 mg/dL LAB CHEMISTRY METHOD 02/28/2025 7:11 PM EDT [facility] Triglycerides 89 0 - 150 mg/dL LAB CHEMISTRY METHOD 02/28/2025 7:11 PM EDT [facility] HDL 47 >=40 mg/dL LAB CHEMISTRY METHOD 02/28/2025 7:11 PM EDT [facility] LDL Calculated 94 0 - 100 mg/dL LAB CHEMISTRY METHOD 02/28/2025 7:11 PM EDT [facility] VLDL Cholesterol Braden 17.8 mg/dL LAB CHEMISTRY METHOD 02/28/2025 7:11 PM EDT [facility] Non HDL Chol. (LDL+VLDL) 112 <145 mg/dL LAB CHEMISTRY METHOD 02/28/2025 7:11 PM EDT [facility] Chol/HDL Ratio 3.4 0.0 - 4.4 LAB CHEMISTRY METHOD 02/28/2025 7:11 PM EDT [facility] Blood Venous blood specimen / Unknown Venipuncture / Unknown 02/28/2025 4:45 PM EDT 02/28/2025 4:45 PM EDT Tyra Patel MD LAB BLOOD ORDERABLES Final Resul t [facility] [address] [place] [address], [place] [phone] * Colonoscopy (09/16/2021) Colonoscopy No Interpretation , Abstracted Anatomical Region Laterality Modality Other Historical Provider HEALTH MAINTENANCE Final Result from Last 3 Months or Most Recently Relevant to Health Maintenance Insurance MEDICARE [facility] [place]ICAID [place] Care Teams Child And Family Counselor Relationship Specialty Start Date End Date Tyra Patel MD [address] [place] [phone] PCP - General 10/24/22
--- OUTSIDE RECORDS SUMMARY | 2025-07-23 08:00 | XMS_ITS | Clinical Summary ---
Author Organization [facility] Address [address] [place] [address] Care Team Providers Care Bioinformatics Scientist Name Role Phone Unavailable Primary Care Provider Unavailabl e Medications Medication Sig Dispensed Refills Start Date End Date Status atenolol (TENORMIN) tablet 25 mg Take 1 tablet (25 mg total) by mouth daily. 0 06/14/2024 Active dicyclomine (BENTYL) 20 MG tablet Take 1 tablet (20 mg total) by mouth 2 (two) times a day. 0 07/11/2024 Active DULoxetine (CYMBALTA) DR capsule 60 mg Take 1 capsule (60 mg total) by mouth daily. 0 07/19/2024 Active guanFACINE (TENEX) 2 MG tablet Take 1 tablet (2 mg total) by mouth every night at bedtime. 0 05/24/2024 Active loperamide (IMODIUM) 2 MG capsule TAKE 1 CAPSULE BY MOUTH 3 TIMES DAILY NEEDED FOR DIARRHEA FOR UP TO 180 DAYS. 0 07/23/2024 Active OXcarbazepine (TRILEPTAL) 150 MG tablet Take 2 tablets (300 mg total) by mouth 2 (two) times a day. 0 07/19/2024 Active QUEtiapine (SEROquel) 50 MG tablet TAKE 1 TABLET BY MOUTH THREE TIMES A DAY NEEDED FOR ANXIETY 0 07/19/2024 Active topiramate (TOPAMAX) 100 MG tablet 0 05/02/2024 Active linaclotide (Linzess) 145 MCG CAPS Take 1 capsule (145 mcg total) by mouth every morning before breakfast. 0 Active Social History Tobacco Use Types Packs/Day Years Used Date Smoking Tobacco: Never Assessed Sex and Gender Information Value Date Recorded Sex Assigned at Unknown 05/14/2024 9:28 AM EDT Gender Identity Not on file Sexual Orientation Not on file Job Start Date Occupation Industry Not on file Not on file Not on file Last Filed Vital Signs Vital Sign Reading Time Taken Comments Blood Pressure 107/75 09/20/2024 11:37 AM EDT Pulse 91 09/20/2024 11:37 AM EDT Temperature 36.2 C (97.1 F) 09/20/2024 11:37 AM EDT Respiratory Rate - - Oxygen Saturation 97% 09/20/2024 11:37 AM EDT Inhaled Oxygen Concentration - - Weight 74.4 kg (164 lb) 07/26/2024 11:23 AM EDT Height 157.5 cm (5' 2 ) 07/26/2024 11:23 AM EDT Body Mass Index 30 07/26/2024 11:23 AM EDT Plan of Treatment Health Maintenance Due Date Last Done Comments Hepatitis B Vaccines (1 of 3 - 3-dose series) 1996 Hepatitis C Screening 1996 COVID-19 Vaccine (#1) 1996 Depression Screening 2008 BMI Counseling 02/22/2014 Preventative Health Evaluation 02/22/2014 DTap / Tdap / Td (1 - Tdap) 02/22/2015 Cervical Cancer Screening (P ap Smear) 02/22/2017 Influenza Vaccine (#1) 2025 Pneumococcal Vaccine Aged Out No long er eligible based on patient's age to complete this topic RSV Ped < 20 months Aged Out No longe r eligible based on patient's age to complete this topic
--- OUTSIDE RECORDS SUMMARY | 2025-07-23 08:00 | XMS_ITS ---
Author Name [facility] Organization Unknown History of Medication Use Medication Directions Dispensed Refills Start Date End Date Stat us loperamide (IMODIUM) 2 MG capsule TAKE 1 CAPSULE BY MOUTH 3 TIMES DAILY NEEDED FOR DIARRHEA FOR UP TO 180 DAYS. 07/23/2024 active predniSONE (DELTASONE) tablet 10 mg PLEASE SEE ATTACHED FOR DETAILED DIRECTIONS 07/23/2024 active DULoxetine (CYMBALTA) DR capsule 60 mg Take 1 capsule (60 mg total) by mouth daily. 07/19/2024 active topiramate (TOPAMAX) 100 MG tablet 05/02/2024 active Problems Problem Status Onset Date Problem Type Date of Resoluti on Source Seizure disorder (HCC) active EncounterDiagnosisAct CTTHNE MG
== END 2025-07-23 07:56 | disposition home or self-care (01) ==
LOC: HO.SH 07:55
PROVIDERS: Visit Provider Internal Medicine
DX: Z01.118 Encounter for examination of ears and hearing with other abnormal findings (principal); H93.293 Other abnormal auditory perceptions, bilateral
CPT/HCPCS: 92557; 92567